=== PATIENT | male | born 1930 | race Caucasian/White ===

== ENCOUNTER 2017-01-29 02:52 | Emergency (ER) | payer MEDICARE, BC ==
[~2017-01-29 02:52] MED LIST: CIPRO; COUMADIN2.5 M1 PO; FISH OIL 1,0001 CA PO; GLUCOPHAGE1000 M1; LISINOPRIL20 MG PO; MULTIVITAMIN1 TAB PO; SIMVASTATIN10 MG PO; TYLENOL500 MG PO; [UNRECOGNIZED DRUG - OTHER] TP
[2017-01-29] MEDS ORDERED: ACARBOSE PO (03:04)
[2017-01-29] MEDS ORDERED: COUMADIN2.5 M1 PO (03:07)
[2017-01-29] MEDS ORDERED: CICLOPIROX 8% TP (03:09)
[2017-01-29] MEDS ORDERED: COLACE100 M1 PO (03:09)
[2017-01-29 03:56] LABS: BASO % 0.1 % (0-2); EOS % 1.5 % (0-7); EOSINOPHIL ABSOLUTE COUNT 0.1 tho/cmm (0.0-0.7); HCT-HEMATOCRIT 39.7 % (36.0-53.5); HGB-HEMOGLOBIN 14.3 gm/dl (13.5-17.0); IMMATURE GRANULOCYTES ABSOLUTE 0.02 tho/cmm (0-0.03); IMMATURE GRANULOCYTES PERCENT 0.2 % (0-0.3); MCH (MEAN CORPUSCULAR HGB) 31.8 pg (28.0-32.0); MCV (MEAN CELL VOLUME) 88.2 fl (82.0-96.0); MEAN PLATELET VOLUME 9.2 cmc (9.4-12.4); MONO % 7.3 % (0-12); MONOCYTE ABSOLUTE COUNT 0.6 tho/cmm (0.0-1.2); NEUTROPHIL ABSOLUTE COUNT 6.8 tho/cmm (1.6-8.0); NEUTROPHIL-AUTOMATED 6.8 tho/cmm (1.6-8.0); NEUTROPHILS % 78.9 % (40-80); PLATELET COUNT 201 tho/cmm (150-450); RED CELL DISTRIBUTION WIDTH 12.3 % (12.4-16.4); WHITE BLOOD COUNT 8.6 tho/cmm (4.0-10.0)
[2017-01-29 04:02] LABS: INR 2.1 INR (0.9-1.1); PROTHROMBIN TIME 24.6 SECONDS (9.0-13.6)
[2017-01-29 04:07] LABS: URINE BILIRUBIN NEGATIVE (NEG); URINE BLOOD LARGE (NEG); URINE GLUCOSE (UA) SMALL (NEG); URINE KETONE SMALL (NEG); URINE LEUKOCYTE ESTERASE POSITIVE (NEG); URINE NITRITE POSITIVE (NEG); URINE PROTEIN LARGE (NEG); URINE SPECIFIC GRAVITY 1.025 (1.003-1.030)
[2017-01-29 04:08] LABS: URINE APPEARANCE CLOUDY; URINE COLOR BROWN
[2017-01-29 04:14] LABS: ALB/GLOB RATIO 1.2 (0.8-2.0); ALBUMIN 3.6 g/dl (3.5-5.0); ALKALINE PHOSPHATASE 84 U/L (33-138); ALT/SGPT 29 U/L (12-78); ANION GAP 11 mmol/L (0-20); AST/SGOT 22 U/L (10-40); BLOOD UREA NITROGEN 11 mg/dl (6-24); CALCIUM 8.8 mg/dl (8.5-10.5); CARBON DIOXIDE-VENOUS 27 mmol/L (22-32); CHLORIDE 98 mmol/l (96-110); CREATININE 0.75 mg/dl (0.60-1.30); GLUCOSE 178 mg/dL (70-110); POTASSIUM 4.3 mmol/L (3.7-5.1); SODIUM 132 mmol/L (135-145); eGFR VALUE FOR BLACK >90 mL/Min
[2017-01-29 04:37] LABS: URINE BACTERIA 4+; URINE EPITHELIAL CELLS 0-3 /[HPF] (0-10); URINE RBC 80-90 /[HPF] (0-5); URINE WBC 80-100 /[HPF] (0-5)
[2017-01-29] MEDS ORDERED: PYRIDIUM200 M2 PO (05:02)
[2017-01-29] MEDS ORDERED: MACROBID 100 M100 M1 PO (05:02)
== END 2017-01-29 05:39 ==
LOC: EDMED 02:52
PROVIDERS: Emergency Medicine
DX: N30.91 Cystitis, unspecified with hematuria (principal); I48.91 Unspecified atrial fibrillation; I10 Essential (primary) hypertension; E11.9 Type 2 diabetes mellitus without complications; Z90.89 Acquired absence of other organs